=== PATIENT | male | born 1970 | race Caucasian/White ===

== ENCOUNTER 2017-03-12 00:51 | Emergency (ER) | payer MEDICAID ==
[2017-03-12] MEDS ORDERED: IBUPROFEN 600 MG TABLET PO ONE (00:59)
[2017-03-12] MEDS ORDERED: METRONIDAZOLE 250 MG TABLET PO ONE (01:02)
[2017-03-12] MEDS ORDERED: LEVOFLOXACIN 500 MG TABLET PO ONE (01:02)
[2017-03-12] MEDS ORDERED: Diph,Pert(Acell),Tet Vac 0.5 ML SYR IM ONE (01:05)
--- NOTE | 2017-03-12 01:08 | Emergency Department Record ---
History of Present Illness - General Chief Complaint: Animal Bite Stated Complaint: DOG BITE Time Seen by Provider: 03/12/17 00:59 Source: Patient Mode of Arrival: Ambulatory Limitations: No limitations - History of Present Illness Initial Comments: 46yo male presents with a dog bite to his right hand. The dog is his dog. His dogs were excited due to seeing racoons. He was trying to separate his dogs and one of them bit his right hand. He has a puncture on the right in the web space and one in the palm. He has some swelling. No numbness or tingling. No loss of movement or ROM. The incident happen 2 hours ago. He cleaned the area immediately. The dog is healthy. He was not bit by the racoon. MD Complaint: Animal bite Onset/Timin -: Hour(s) Right: Hand Animal: Dog Description: Household pet, Immunizations UTD, Appeared well Mechanism: Bite Pain Description: Sharp Context: Animals fighting Associated Symptoms: None - Related Data Home Medications Medication Instructions Recorded Confirmed Last Taken Cetirizine HCl [Zyrtec] 10 mg PO DAILY PRN 04/21/15 03/12/17 05/08/16 Citalopram Hydrobromide 20 mg PO DAILY 03/12/17 03/12/17 Unknown [Citalopram HBr] Omeprazole 20 mg PO DAILY 03/12/17 03/12/17 Unknown Previous Rx's Medication Instructions Recorded Levofloxacin [Levaquin] 750 mg PO DAILY #7 tab 03/12/17 Metronidazole [Flagyl] 500 mg PO BID #14 tablet 03/12/17 Allergies Allergy/AdvReac Type Severity Reaction Status Date / Time clarithromycin [From Biaxin] Allergy RASH Verified 05/08/16 11:04 penicillin Allergy ITCHING Verified 05/08/16 11:04 Travel Screening - Travel/Exposure Within Last 30 Days Have you traveled within the last 30 days?: No - Travel/Exposure Within Last Year Have you traveled outside the [place] in the last year?: No - Additonal Travel Details Have you been exposed to anyone with a communicable illness?: No - Travel Symptoms Symptom Screening: None Review of Systems Constitutional: Denies: Chills, Fever Eyes: Denies: Photophobia ENT: Denies: Congestion, Throat pain Respiratory: Denies: Cough Cardiovascular: Denies: Syncope Endocrine: Denies: Fatigue Gastrointestinal: Denies: Abdominal pain, Diarrhea, Nausea, Vomiting Genitourinary: Denies: Dysuria, Frequency, Urgency Musculoskeletal: Reports: Other (Hand soft tissue swelling). Denies: Arthralgia , Joint swelling, Myalgia, Neck pain Skin: Denies: Bruising, Change in color, Rash Neurological: Denies: Headache Psychiatric: Denies: Anxiety Hematological/Lymphatic: Denies: Easy bruising Past Medical History - SOCIAL HISTORY Smoking Status: Former smoker Alcohol Use: Occassional Drug Use: None - RESPIRATORY Hx Respiratory Disorders: Yes Comment:: seasonal allergies - CARDIOVASCULAR Hx Cardio Disorders: No - NEURO Hx Neuro Disorders: No - GI Hx GI Disorders: No - Hx Genitourinary Disorders: No - ENDOCRINE Hx Endocrine Disorders: No - MUSCULOSKELETAL Hx Musculoskeletal Disorders: No - PSYCH Hx Psych Problems: No - HEMATOLOGY/ONCOLOGY Hx Hematology/Oncology Disorders: No Family Medical History Any Significant Family History?: No Hx Diabetes: Father Physical Exam - General General Appearance: Alert, Oriented x3, Cooperative, No acute distress Limitations: No limitations - Head Head exam: Atraumatic - Eye Eye exam: Normal appearance - ENT ENT exam: Normal exam Ear exam: Normal external inspection Nasal Exam: Normal inspection - Neck Neck exam: Normal inspection - Cardiovascular Peripheral Pulses: 2+: Radial (R) - Rectal Rectal exam: Deferred - exam: Deferred - Extremities Extremities exam: Full ROM, Normal capillary refill, Tenderness, Other (Full ROM with full flexion of fingers with limitation or pain, thumb with intact sensation and full extension without pain or limitation). negative: Normal inspection Image of Hand: 1 - puncture 2 - puncture - Neurological Neurological exam: Alert, Motor sensory deficit, Normal gait, Oriented X3. negative: Altered - Psychiatric Psychiatric exam: Normal affect, Normal mood Course Vital Signs 03/12/17 00:54 Temperature 98.5 F Pulse Rate 64 Respiratory 20 Rate Blood Pressure 123/79 Pulse Ox 98 - Reevaluation(s) Reevaluation #1: The patient was seen and examined The patient had cleaned the wounds immediately at the time of the bite He has intact sensation and ROM without pain or limitation The hand was immediately cleaned in [employer] The punctures were irrigated with copious NS The patient is allergic to PCN with Hives as well and Clindamycin He was placed on Levaquin and Flagyl. We discussed at length concerns about infection developing We discussed home care and reasons for an immediate return if any signs of infection develop XR ordered 03/12/17 01:09 Reevaluation #2: Prelim XR read is negative for Fx or FB. No acute process 03/12/17 Disposition Disposition: Discharge Clinical Impression: Dog bite of hand Qualifiers: Encounter type: initial encounter Laterality: right Qualified Code(s): S61.451A - Open bite of right hand, initial encounter Disposition: Home, Self-Care Condition: (1) Good Instructions: Animal Bite (ED) Additional Instructions: Clean the area twice daily Elevate the hand to minimize swelling Take the antibiotics as directed for the next 7 days Return immediately if you have any increased pain, swelling, pus, drainage, redness, warmth of the hand. Prescriptions: Levofloxacin [Levaquin] 750 mg PO DAILY #7 tab Metronidazole [Flagyl] 500 mg PO BID #14 tablet Forms: Patient Portal Access Time of Disposition: 01:28
--- NOTE | 2017-03-14 15:08 | RADIOLOGY REPORT ---
EXAM: HAND, RIGHT 3 VIEWS HISTORY: DOG BITE. PUNCTURE WOUND, PALMAR ASPECT SECOND/THIRD METACARPAL, RIGHT HAND. TECHNIQUE: Three-view right hand. COMPARISON: Right hand 08/20/2016. ENCOUNTER: Initial. FINDINGS: No acute fracture or radiodense foreign body. Mild osteoarthritic change of the DIPs. IMPRESSION: 1. NO ACUTE OSSEOUS ABNORMALITY OF THE RIGHT HAND WITH NO RADIODENSE FOREIGN BODY. 2. MILD MULTIFOCAL OSTEOARTHRITIC CHANGE. JOB NUMBER: [id number] MTDD
== END 2017-03-12 01:43 | disposition home or self-care (01) ==
LOC: ER 00:51
DX: S61.451A Open bite of right hand, initial encounter (principal); W54.0XXA Bitten by dog, initial encounter; Y92.009 Unspecified place in unspecified non-institutional (private) residence as the place of occurrence of the external cause
CPT/HCPCS: 90715; 96372; 99283

== ENCOUNTER 2017-06-21 19:46 | Emergency (ER) | payer MEDICAID ==
--- NOTE | 2017-06-21 20:07 | Emergency Department Record ---
History of Present Illness - General Chief Complaint: Animal Bite Stated Complaint: DOG BITE Time Seen by Provider: 06/21/17 20:01 Source: Patient Mode of Arrival: Ambulatory Limitations: No limitations - History of Present Illness Initial Comments: 47 yo male presents to ED following injury to the face/inner lip resulting from a dog bite. Patient reports that he was eating a slim-roshan when his dog jumped up and attempted to take it from him resulting in several puncture wounds to the lip/face. Patient denies other injury, and denies health problems at his baseline. Patient reports that his tetanus is UTD as well. Complaint: Animal bite Onset/Timin -: Minutes(s) Location - General: Face Animal: Dog Description: Household pet, Immunizations UTD, Appeared well Mechanism: Bite Pain Description: Constant Severity scale (1-10): 7 Context: Unprovoked Associated Symptoms: Bleeding - Related Data Patient Tetanus UTD (within 5 yrs): Yes Previous Rx's Medication Instructions Recorded Doxycycline Hyclate [Doxycycline] 100 mg PO BID #19 cap 06/21/17 Allergies Allergy/AdvReac Type Severity Reaction Status Date / Time clarithromycin [From Biaxin] Allergy RASH Verified 05/08/16 11:04 penicillin Allergy ITCHING Verified 05/08/16 11:04 Travel Screening - Travel/Exposure Within Last 30 Days Have you traveled within the last 30 days?: No Review of Systems Constitutional: Denies: Chills, Fever, Malaise, Night sweats Eyes: Denies: Eye discharge, Eye pain ENT: Denies: Congestion, Ear pain, Epistaxis Respiratory: Denies: Cough, Dyspnea Cardiovascular: Denies: Chest pain, Dyspnea on exertion Endocrine: Denies: Fatigue, Heat or cold intolerance Gastrointestinal: Denies: Abdominal pain, Nausea, Vomiting Genitourinary: Denies: Incontinence, Retention Musculoskeletal: Denies: Arthralgia, Back pain, Gout, Joint swelling Skin: Reports: Other (dog bite injury). Denies: Bruising, Change in color Neurological: Denies: Abnormal gait, Confusion, Headache, Seizure Psychiatric: Denies: Anxiety Hematological/Lymphatic: Denies: Anemia, Blood Clots Past Medical History - SOCIAL HISTORY Smoking Status: Former smoker Alcohol Use: None Drug Use: None - RESPIRATORY Hx Respiratory Disorders: Yes Comment:: seasonal allergies - CARDIOVASCULAR Hx Cardio Disorders: No - NEURO Hx Neuro Disorders: No - GI Hx GI Disorders: No - Hx Genitourinary Disorders: No - ENDOCRINE Hx Endocrine Disorders: No - MUSCULOSKELETAL Hx Musculoskeletal Disorders: No - PSYCH Hx Psych Problems: No - HEMATOLOGY/ONCOLOGY Hx Hematology/Oncology Disorders: No Family Medical History Any Significant Family History?: Yes Hx Diabetes: Father Physical Exam - General General Appearance: Alert, Oriented x3, Cooperative, Mild distress Limitations: No limitations - Head Head exam: Normocephalic Head exam detail: Other (Several puncture wounds to the right lower lip and chin (3), laceration to the inner oral mucosa ). negative: Abrasion, Contusion , Merchant's sign, General tenderness, Hematoma, Laceration - Eye Eye exam: Normal appearance. negative: Conjunctival injection, Periorbital swelling, Periorbital tenderness, Scleral icterus - ENT Ear exam: negative: Auricular hematoma, Auricular trauma Nasal Exam: negative: Active bleeding, Discharge, Dried blood, Foreign body Mouth exam: negative: Drooling, Laceration, Muffled voice, Tongue elevation - Neck Neck exam: Normal inspection. negative: Meningismus, Tenderness - Respiratory Respiratory exam: Normal lung sounds bilaterally. negative: Rales, Respiratory distress, Rhonchi, Stridor - Cardiovascular Cardiovascular Exam: Regular rate, Normal rhythm, Normal heart sounds - GI/Abdominal GI/Abdominal exam: Soft. negative: Rebound, Rigid, Tenderness - Rectal Rectal exam: Deferred - exam: Deferred - Extremities Extremities exam: Normal inspection. negative: Pedal edema, Tenderness - Back Back exam: Denies: CVA tenderness (R), CVA tenderness (L) - Neurological Neurological exam: Alert, Normal gait, Oriented X3 - Psychiatric Psychiatric exam: Normal affect, Normal mood - Skin Skin exam: Normal color. negative: Abrasion Type of lesion: negative: abrasion Course Vital Signs 06/21/17 19:53 Temperature 98.3 F Pulse Rate [ 64 Pulse Ox Probe] Respiratory 20 Rate Blood Pressure 117/69 [Left Arm] Pulse Ox 100 - Reevaluation(s) Reevaluation #1: 06/21/17 20:34 Procedure Note: Wound to the inner lip mucosa measures approximately 3.0 cm with avulsion of the mucosa from the base of the gingiva. Wound was irrigated with 500 mL under jet irrigation, wound was anesthetized with mental blocks bilaterally with good anesthesia. Wound was then closed with 4-0 Vicryl sutures #5 with adequate closure. Patient was counseled about the risk of [id number] despite irrigation and antibiotics and will return for any worsening of his symptoms. Patient appears stable for discharge at this time. Disposition Disposition: Discharge Clinical Impression: Dog bite of face Qualifiers: Encounter type: initial encounter Qualified Code(s): S01.85XA - Open bite of other part of head, initial encounter Lip laceration Qualifiers: Encounter type: initial encounter Qualified Code(s): S01.511A - Laceration without foreign body of lip, initial encounter Disposition: Home, Self-Care Condition: (2) Stable Instructions: Animal Bite (ED) Additional Instructions: Return to ED if your symptoms worsen or if you have any concerns. Follow-up with your family doctor in 5-7 days as directed. Doxycycline as directed. Prescriptions: Doxycycline Hyclate [Doxycycline] 100 mg PO BID #19 cap Forms: Patient Portal Access Time of Disposition: 20:34 Quality - Quality Measures Quality Measures: N/A - Blood Pressure Screening Does Patient Have Any of the Following: No Blood Pressure Classification: Normal BP Reading Systolic Measurement: 117 Diastolic Measurement: 69 Screening for High Blood Pressure: < Normal BP, F/U Not Required > [[id number]]
[2017-06-21] MEDS ORDERED: DOXYCYCLINE HYCLATE 100 MG CAPSULE PO ONE (20:32)
== END 2017-06-21 20:47 | disposition home or self-care (01) ==
LOC: ER 19:46
DX: S01.511A Laceration without foreign body of lip, initial encounter (principal); S01.81XA Laceration without foreign body of other part of head, initial encounter; W54.0XXA Bitten by dog, initial encounter; Y92.009 Unspecified place in unspecified non-institutional (private) residence as the place of occurrence of the external cause
CPT/HCPCS: 12013; 99283